=== PATIENT | female | born 1980 | race Caucasian/White ===

== ENCOUNTER 2022-08-14 00:24 | Emergency (ER) | payer OTHER ==
[~2022-08-14] VITALS: Ht 154.9 cm; Wt 95.3 kg
[~2022-08-14 00:24] MED LIST: ORPHENADRI30 MG/1 ML; SINGULAIR 10MG10 MG; ZOLOFT100 MG; ZYRTEC10 M3
[2022-08-14] MEDS ORDERED: TRAZODONE HCL300 MG PO (01:10)
[2022-08-14] MEDS ORDERED: DOLOGESIC 500-1 EACH PO (05:18)
== END 2022-08-14 05:22 ==
LOC: ER 00:24
DX: S09.90XA Unspecified injury of head, initial encounter (principal); Y08.89XA Assault by other specified means, initial encounter; Y93.9 Activity, unspecified; Y92.9 Unspecified place or not applicable; S19.80XA Other specified injuries of unspecified part of neck, initial encounter; S79.812A Other specified injuries of left hip, initial encounter; S29.8XXA Other specified injuries of thorax, initial encounter; Z88.6 Allergy status to analgesic agent

== ENCOUNTER 2022-11-11 19:09 | Inpatient (IN) | payer OTHER ==
[~2022-11-11] VITALS: Ht 160 cm; Wt 77.1 kg
[~2022-11-11 19:09] MED LIST changes: +DOLOGESIC 500-1 EACH PO; +TRAZODONE HCL300 MG PO
[2022-11-14] MEDS ORDERED: BACLOFEN20 MG (11:21)
[2022-11-14] MEDS ORDERED: LISINOPRIL5 MG (11:21)
[2022-11-14] MEDS ORDERED: LORAZEPAM2 MG (11:21)
[2022-11-16] MEDS ORDERED: TRAM1TAB98 PO (20:31)
== END 2022-11-16 21:18 | disposition home or self-care (01) | DRG 761 ==
LOC: ER 19:09 → OB/GYN 11-12 10:23
PROVIDERS: ADMIT Student in an Organized Health Care Education/Training Program; ATTEND Student in an Organized Health Care Education/Training Program
PROC: BW21ZZZ Computerized Tomography (CT Scan) of Abdomen and Pelvis (ICD-10-PCS; principal; 2022-11-11)
PROC: BU4CZZZ Ultrasonography of Uterus and Ovaries (ICD-10-PCS; 2022-11-11)
PROC: BW3GZZZ Magnetic Resonance Imaging (MRI) of Pelvic Region (ICD-10-PCS; 2022-11-13)
PROC: BW3GYZZ Magnetic Resonance Imaging (MRI) of Pelvic Region using Other Contrast (ICD-10-PCS; 2022-11-13)
PROC: BW30ZZZ Magnetic Resonance Imaging (MRI) of Abdomen (ICD-10-PCS; 2022-11-13)
PROC: BW30YZZ Magnetic Resonance Imaging (MRI) of Abdomen using Other Contrast (ICD-10-PCS; 2022-11-13)
DX: N83.292 Other ovarian cyst, left side (principal); Z20.822 Contact with and (suspected) exposure to COVID-19
CPT/HCPCS: 72198; 74182

== ENCOUNTER 2023-12-29 23:38 | Emergency (ER) | payer OTHER ==
[~2023-12-29] VITALS: Ht 154.9 cm; Wt 93.0 kg
[~2023-12-29 23:38] MED LIST changes: +BACLOFEN20 MG; +LISINOPRIL5 MG; +LORAZEPAM2 MG; +TRAM1TAB98 PO
[2023-12-30] MEDS ORDERED: ORPHENADRINE CITRATE 30 MG/ML AMPUL IM ONE (00:45)
[2023-12-30] MEDS ORDERED: TRIAMCINOLONE ACETONIDE 40 MG/ML VIAL IM ONE (00:45)
[2023-12-30] MEDS ORDERED: ORPHENADRINE CITRATE 30 MG/ML AMPUL ONE (00:47)
[2023-12-30] MEDS ORDERED: TRIAMCINOLONE ACETONIDE 40 MG/ML VIAL ONE (00:47)
== END 2023-12-30 02:35 | disposition home or self-care (01) ==
LOC: ER 23:39
DX: M79.601 Pain in right arm (principal); M94.0 Chondrocostal junction syndrome [Tietze]; Z88.6 Allergy status to analgesic agent
CPT/HCPCS: 36415; 73060; 93005; 96372; 99283; J2360; J3301